=== PATIENT | female | born 1960 | race Two or more races ===

== ENCOUNTER 2021-05-09 08:58 | Outpatient (CLI) | payer MEDICAID, OTHER ==
[2021-05-09] MEDS ORDERED: IOHEXOL-350 100 ML VIAL IV ONE (09:28)
[2021-05-09] MEDS ORDERED: IV NS 0.9% 250 ML IV ONE (09:28)
[2021-07-23] MEDS ORDERED: DEXA6TAB6 PO (11:24)
== END 2021-05-09 23:59 | disposition home or self-care (01) ==
LOC: XR 08:58
PROVIDERS: ATTEND Internal Medicine Interventional Cardiology
DX: R07.9 Chest pain, unspecified (principal)
CPT/HCPCS: 75574; J7050; Q9967

== ENCOUNTER 2021-07-16 17:42 | Inpatient (IN) | payer MEDICAID, OTHER ==
[~2021-07-16] VITALS: Ht 160 cm; Wt 85.3 kg
--- NOTE | 2021-07-16 18:23 | NUR ---
BLOOD SPECIMEN COLLECTED AND SENT TO THE LAB
--- NOTE | 2021-07-16 19:04 | NUR ---
PER LAB, LACTIC 10.5 TROP 0.165 K 2.7
--- NOTE | 2021-07-16 19:04 | NUR ---
COVID SWAB DONE AND SENT TO THE LAB
[2021-07-16 19:43] LABS: CALCIUM, SERUM 8.3 mg/dL (8.5-10.1); CARBON DIOXIDE 23 mmol/L (21-32); CHLORIDE 100 mmol/L (98-107); GLUCOSE 153 mg/dL (74-106); POTASSIUM 3.5 mmol/L (3.5-5.1); SODIUM SERUM 134 mmol/L (136-145); UREA NITROGEN, BLOOD 13 mg/dL (7-18)
[2021-07-16 19:48] LABS: ALANINE AMINOTRANSFERASE 42 U/L (12-78); ALBUMIN 3.2 g/dL (3.4-5.0); ALKALINE PHOSPHATASE 74 U/L (46-116); ASPARTATE AMINOTRANSFERASE 29 U/L (15-37); BILIRUBIN,TOTAL 0.3 mg/dL (0.2-1.0); TOTAL PROTEIN, SERUM 7.5 g/dL (6.4-8.2)
[2021-07-16 19:52] LABS: CREATINE KINASE, TOTAL 84 U/L (26-192); D-DIMER 1.56 mg/L(FEU (0.17-0.50); FERRITIN 296 ng/mL (8-388)
[2021-07-16 19:54] LABS: BASOPHILS % (AUTO) 0.1 % (0.0-2.0); EOSINOPHILS % (AUTO) 0.3 % (0.0-6.0); HEMATOCRIT 36 % (33-45); HEMOGLOBIN 11.9 g/dL (11.5-14.8); LYMPHOCYTES # (AUTO) 1.2 K/uL (0.8-4.8); LYMPHOCYTES % (AUTO) 31.8 % (20.0-44.0); MEAN CORPUSCULAR HGB CONC 33 g/dl (31.0-36.0); MEAN CORPUSCULAR VOLUME 90 fL (82-100); MONOCYTES # (AUTO) 0.2 K/uL (0.1-1.30); MONOCYTES % (AUTO) 5.9 % (2.0-12.0); NEUTROPHILS # (AUTO) 2.4 K/uL (1.8-8.9); NEUTROPHILS % (AUTO) 61.9 % (43.0-81.0); PLATELET COUNT (AUTO) 239 K/uL (150-450); RED BLOOD CELL COUNT(AUTO) 3.99 MIL/uL (4.0-5.2); WHITE BLOOD COUNT (AUTO) 3.8 K/uL (4.3-11.0)
--- NOTE | 2021-07-16 20:07 | NUR ---
INFLUENZA SWAB VIA R NARE COLLECTED AND SENT TO LAB
--- NOTE | 2021-07-16 20:26 | NUR ---
ROOM 110
[2021-07-16] MEDS ORDERED: CEFTRIAXONE 1GM BAG (ER ONLY) 50 ML IV ONE (20:27)
[2021-07-16] MEDS ORDERED: CEFTRIAXONE 1GM BAG (ER ONLY) 1 GM/50 ML PIGGYBACK IV ONE (20:30)
[2021-07-16] MEDS ORDERED: IV NS 0.9% 1,000 ML BAG IV ONE (20:30)
--- NOTE | 2021-07-16 20:50 | NUR ---
URINE SAMPLE COLLECTED AND SENT TO LAB
--- NOTE | 2021-07-16 21:17 | NUR ---
REPORT GIVEN TO OMER DE LA TORRE RN FOR AMARIS
--- NOTE | 2021-07-16 21:25 | NUR ---
RN NOTES RECEIVED PT FROM ER VIA KARY ACCOMPANIED BY 2 ER STAFF AND TRANSFERRED TO BED VIA 2 PERSON ASSIST. PT IS A/OX4 CHINESE SPEAKING ; ON 4L OF O2 VIA NC TOLERATING WELL WITH RESPIRATIONS EVEN AND UNLABORED. COMPREHENSIVE PHYSICAL ASSESSMENT AND PATIENT CARE DONE. CALL LIGHT WITHIN REACH, SAFETY MEASURES AND ISOLATION PRECAUTION IN PLACE, WILL CONTINUE MONITOR AND ASSESS THROUGHOUT THE SHIFT. WILL CARRY OUT MD ORDERS ACCORDINGLY. TECHNOLOGY INTERNSHIP MADE AWARE.
--- NOTE | 2021-07-16 21:40 | NUR ---
PT TRANSFERRED TO [facility] ROOM 101 VIA ACLS PROTOCOL. ALL PT BELONGINGS WITH PT
[2021-07-16 21:42] LABS: BILIRUBIN,URINE NEGATIVE (NEGATIVE); COLOR,URINE YELLOW (YELLOW); LEUKOCYTE ESTERASE ,URINE NEGATIVE (NEGATIVE); NITRITE, URINE NEGATIVE (NEGATIVE); PROTEIN,URINE NEGATIVE (NEGATIVE); UGLUCOSE NEGATIVE (NEGATIVE); UROBILINOGEN,URINE 0.2 EU/dL (0.2)
[2021-07-16 21:46] VITALS: BP 142/83
[2021-07-16 21:51] LABS: BACTERIA,URINE None seen /HPF (None Seen); RBC,URINE 0-2 /HPF (0-2); SQUAMOUS EPITHELIAL CELL,UR 0-2 /HPF (None Seen); WBC,URINE 0-2 /HPF (0-3)
[2021-07-16] MEDS ORDERED: IPRATROPIUM NEB FS 0.5 MG/2.5 ML AMPUL.NEB NEB PRN (22:00)
[2021-07-16] MEDS ORDERED: ACETAMINOPHEN 325 MG TABLET PO PRN (22:00)
[2021-07-16] MEDS ORDERED: ALBUTEROL FS 2.5 MG/3 ML VIAL.NEB NEB PRN (22:00)
[2021-07-16] MEDS ORDERED: ONDANSETRON 4 MG TAB.RAPDIS SL PRN (22:00)
[2021-07-16] MEDS: DEXAMETHASONE SOD PHOSPHATE 10 MG/ML VIAL IV SCH (22:27)
[2021-07-17] VITALS (7 sets, daily range): BP systolic 105–148; BP diastolic 60–90
--- NOTE | 2021-07-17 | NUR ---
RN NOTES PATIENT REMAINED TO BE IN NO SIGNS OF ACUTE RESPIRATORY DISTRESS , VITAL SIGNS WNL AT THIS TIME. DONKEY DOCTOR MADE AWARE. WILL CONTINUE TO MONITOR AND REASSESS FOR ANY CHANGES THROUGHOUT THE SHIFT.
--- NOTE | 2021-07-17 04:00 | NUR ---
RN NOTES NO NOTED CHANGES IN PATIENT CONDITION AT THIS TIME; PATIENT VITALS STABLE, NO SIGNS OF ACUTE RESPIRATORY DISTRESS. AM PATIENT CARE RENDERED.WILL CONTINUE TO MONITOR AND REASSESS FOR ANY CHANGES THROUGHOUT THE SHIFT.
--- NOTE | 2021-07-17 06:51 | NUR ---
RN CLOSING NOTE: PATIENT REMAINS IN ROOM IN NO SIGNS OF RESPIRATORY DISTRESS, PATIENT STILL ON 4L OF O2 VIA NC ;TOLERATING WELL SATURATING @ >95% SP02. SAFETY MEASURES IMPLEMENTED, BED IN LOWEST POSITION, LOCKED, SIDE RAILS UP, CALL LIGHT WITHIN REACH. ALL NEEDS AND ORDERS ADDRESSED DURING THE SHIFT. IV ACCESS MAINTAINED INTACT, SECURED AND FLUSHING WELL. ALL DUE MEDS GIVEN ORDERED & SCHEDULED ; PATIENT TOLERATED WELL. PATIENT KEPT CLEAN AND COMFORTABLE WITHIN THE SHIFT. PATIENT ENDORSED TO INCOMING SHIFT RN WITH STABLE VITAL SIGN AND FOR CONTINUITY OF CARE.
[2021-07-17] MEDS ORDERED: LORA10TA7 PO (08:29)
[2021-07-17] MEDS ORDERED: ATOR20TA PO (08:29)
[2021-07-17] MEDS ORDERED: ASPI-1498 PO (08:29)
[2021-07-17] MEDS ORDERED: METO25TA4 PO (08:29)
[2021-07-17] MEDS: DEXAMETHASONE SOD PHOSPHATE 10 MG/ML VIAL IV SCH (08:41)
--- NOTE | 2021-07-17 15:52 | NUR ---
RN NOTE PATIENT O2 SAT 95% ON RA
[2021-07-17] MEDS: ENOXAPARIN SODIUM 40 MG/0.4 ML DISP.SYRIN SQ SCH (16:03)
--- NOTE | 2021-07-17 16:54 | NUR ---
RN OPENING NOTE PT AWAKE. VS WNL. PATIENT ON TRACH W/ 4 L PLACED. SAT > 95%. RU MIDLINE INTACT AND PATENT. GT ON @40CC. GT SITE PATENT AND INTACT. Addendum: 07/17/21 at 1656 by SHAUNNA MC RN *OPENING NOTE @0800*
--- NOTE | 2021-07-17 19:50 | NUR ---
RN NOTE RECEIVED PATIENT SITTING ON BEDSIDE CHAIR. AOX4. ABLE TO MAKE NEEDS KNOWN BREATHING EVEN AND UNLABORED. ON NASAL CANNULA AT 4L/MIN. TOLERATING WELL. NO SOB NOTED. NOTED WITH COUGH. SKIN WARM AND DRY. AFEBRILE AT THIS TIME. DENIES ANY PAIN. NOTED WITH LEFT HAND PERIPHERAL IV 20G. PATENT. BED LOW, IN LOCKED POSITION. CALL LIGHT WITHIN REACH.
[2021-07-17] MEDS: AZITHROMYCIN 250 MG TABLET PO SCH (21:24)
[2021-07-18] VITALS (7 sets, daily range): BP systolic 119–159; BP diastolic 65–84
--- NOTE | 2021-07-18 04:50 | NUR ---
RN NOTE PATIENT COMPLAINING OF MILD GENERALIZED BODY PAIN 11/25. ASSISTED WITH REPOSITION FOR COMFORT. ADMINISTERED TYLENOL 650 MG PO. WILL CONTINUE TO MONITOR.
[2021-07-18 06:27] LABS: BASOPHILS % (AUTO) 0.2 % (0.0-2.0); HEMATOCRIT 35 % (33-45); HEMOGLOBIN 11.5 g/dL (11.5-14.8); LYMPHOCYTES # (AUTO) 1.3 K/uL (0.8-4.8); LYMPHOCYTES % (AUTO) 22.1 % (20.0-44.0); MEAN CORPUSCULAR HGB CONC 34 g/dl (31.0-36.0); MEAN CORPUSCULAR VOLUME 90 fL (82-100); MONOCYTES # (AUTO) 0.3 K/uL (0.1-1.30); MONOCYTES % (AUTO) 5.6 % (2.0-12.0); NEUTROPHILS # (AUTO) 4.3 K/uL (1.8-8.9); NEUTROPHILS % (AUTO) 72.1 % (43.0-81.0); PLATELET COUNT (AUTO) 253 K/uL (150-450); RED BLOOD CELL COUNT(AUTO) 3.83 MIL/uL (4.0-5.2)
[2021-07-18 06:46] LABS: D-DIMER 0.99 mg/L(FEU (0.17-0.50)
[2021-07-18 07:00] LABS: CALCIUM, SERUM 8.6 mg/dL (8.5-10.1); CREATININE 0.8 mg/dL (0.6-1.3); MAGNESIUM 1.8 mg/dL (1.8-2.4); POTASSIUM 3.7 mmol/L (3.5-5.1)
--- NOTE | 2021-07-18 07:06 | NUR ---
RN NOTE RECEIVED CALL FROM PHARMACY ASKING ABOUT PATIENTS OXYGEN SATURATION WITHOUT SUPPLEMENTAL OXYGEN. EXPLAINED TO THE PATIENT AND AGREED TO REMOVE NASAL CANNULA TEMPORARILY. NOTED PATIENT WITH OXYGEN SATURATION OF 92 PERCENT ON ROOM AIR WITH HOB ELEVATED 45 DEGREES AND AT RESTING STATE.
[2021-07-18 07:31] LABS: C-REACTIVE PROTEIN 3.5 mg/dL (0.0-0.9)
--- NOTE | 2021-07-18 07:41 | NUR ---
RN OPENING NOTE PATIENT RECEIVED IN BED, ASLEEP. PATIENT ON 4L O2 NC WITH NO SIGNS OF LABORED BREATHING AT THIS TIME. LEFT HAND 20G PIV IN PLACE, PATENT WITH NO SIGNS OF INFILTRATION. NO SIGNS OF DISTRESS NOTED AT THIS TIME. BED LOCKED AND IN LOWEST POSITION, 2 SIDE RAILS UP, CALL LIGHT WITHIN REACH. WILL CONTINUE TO MONITOR.
[2021-07-18] MEDS: DEXAMETHASONE SOD PHOSPHATE 10 MG/ML VIAL IV SCH (08:22)
[2021-07-18] MEDS: AZITHROMYCIN 250 MG TABLET PO SCH (08:22)
[2021-07-18] MEDS ORDERED: REMDESIVIR (CHARGED) 200 MG, *LOADING DOSE 1 EA in IV NS 0.9% 210 ML IV ONE (10:00)
[2021-07-18] MEDS: ENOXAPARIN SODIUM 40 MG/0.4 ML DISP.SYRIN SQ SCH (11:20)
--- NOTE | 2021-07-18 18:42 | NUR ---
RN CLOSING NOTE PATIENT IN BED, AWAKE, A&OX4. PATIENT ON 4L O2 NC WITH NO SIGNS OF LABORED BREATHING AT THIS TIME. LEFT HAND 20G PIV IN PLACE, PATENT WITH NO SIGNS OF INFILTRATION. NO DISTRESS NOTED AT THIS TIME. BED LOCKED AND IN LOWEST POSITION, CALL LIGHT WITHIN REACH, 2 SIDE RAILS UP. ALL SAFETY MEASURES IMPLEMENTED. WILL ENDORSE TO PRECISION PRINTING WORKER NURSE.
[2021-07-19] VITALS: BP 113/71
[2021-07-19 04:00] VITALS: BP 105/60
[2021-07-19 06:31] LABS: BASOPHILS % (AUTO) 0.1 % (0.0-2.0); EOSINOPHILS % (AUTO) 0.2 % (0.0-6.0); HEMATOCRIT 34 % (33-45); HEMOGLOBIN 11.2 g/dL (11.5-14.8); LYMPHOCYTES # (AUTO) 1.3 K/uL (0.8-4.8); LYMPHOCYTES % (AUTO) 24.8 % (20.0-44.0); MEAN CORPUSCULAR HGB CONC 33 g/dl (31.0-36.0); MEAN CORPUSCULAR VOLUME 91 fL (82-100); MONOCYTES # (AUTO) 0.5 K/uL (0.1-1.30); MONOCYTES % (AUTO) 8.6 % (2.0-12.0); NEUTROPHILS # (AUTO) 3.5 K/uL (1.8-8.9); NEUTROPHILS % (AUTO) 66.3 % (43.0-81.0); PLATELET COUNT (AUTO) 252 K/uL (150-450); RED BLOOD CELL COUNT(AUTO) 3.72 MIL/uL (4.0-5.2); WHITE BLOOD COUNT (AUTO) 5.2 K/uL (4.3-11.0)
[2021-07-19 06:49] LABS: BILIRUBIN,DIRECT 0.1 mg/dL (0.0-0.2); BILIRUBIN,TOTAL 0.2 mg/dL (0.2-1.0); CALCIUM, SERUM 8.5 mg/dL (8.5-10.1); CREATININE 0.8 mg/dL (0.6-1.3); POTASSIUM 3.6 mmol/L (3.5-5.1); TOTAL PROTEIN, SERUM 7.2 g/dL (6.4-8.2)
--- NOTE | 2021-07-19 07:08 | NUR ---
RN NOTE NO SIGNIFICANT CHANGES DURING SHIFT. PATIENT AOX4. ABLE TO MAKE NEEDS KNOWN. BREATHING EVEN AND LABORED. NO EPISODE OF SOB DURING SHIFT. PATIENT SLEPT WELL THROUGH THE NIGHT. PATIENT ON 4L/MIN NC, TOLERATING WELL. SKIN WARM AND DRY, NO EPISODE OF FEVER. ALL DUE MEDICATIONS ADMINISTERED, NO ADVERSE REACTIONS NOTED. KEPT CLEAN AND DRY. BED LOW, IN LOCKED POSITION. CALL LIGHT WITHIN REACH.
[2021-07-19 07:40] LABS: ALBUMIN 2.9 g/dL (3.4-5.0)
--- NOTE | 2021-07-19 07:46 | NUR ---
[employer]LE [employer] ARCHITECT NOTES RECEIVED PT RESTING IN FLAT POSITION. PT HAS A L HAND 20G IV, FLUSHED, PATENT, WITH DRESSING IN TACT. SAFETY MEASURES IN PLACE WITH BED IN LOWEST LOCKED POSITION, AND CALL LIGHT WITHIN REACH.
[2021-07-19 08:00] VITALS: BP 99/65
[2021-07-19] MEDS: DEXAMETHASONE SOD PHOSPHATE 10 MG/ML VIAL IV SCH (09:20)
[2021-07-19] MEDS: AZITHROMYCIN 250 MG TABLET PO SCH (09:20)
[2021-07-19] MEDS: REMDESIVIR (CHARGED) 100 MG in IV NS 0.9% 100 ML IV SCH (09:53)
[2021-07-19] MEDS: ENOXAPARIN SODIUM 40 MG/0.4 ML DISP.SYRIN SQ SCH (11:14)
[2021-07-19 12:00] VITALS: BP 119/69
--- NOTE | 2021-07-19 12:57 | NUR ---
RN NOTES, RELAYED EKG RESULTS TO JANIS AND HE REPLIED WITH NO NEW ORDERS, BUT CONTINUE TO MONITOR CLOSELY.
[2021-07-19 16:00] VITALS: BP 103/65
--- NOTE | 2021-07-19 18:52 | NUR ---
IN FLIGHT REFUELING SYSTEM REPAIRER NOTES NO NOTABLE CHANGES DURING SHIFT. PT SITTING UP IN CHAIR. PT HAS A L HAND 20G IV ACCESS, SALINE LOCK. PT ON 4L NC WITH O2 SATURATION ~93% DURING SHIFT. SAFETY MEASURES IN PLACE, CLUTTER REMOVED FROM ROOM, AND CALL LIGHT WITHIN REACH.
[2021-07-19 20:00] VITALS: BP 106/59
--- NOTE | 2021-07-19 21:33 | NUR ---
RN NOTES, NOTED PATIENT WITH HR IN THE 40S, THE LOWEST 42, CONSISTENTLY IN 4OS, PATIENT A/O X4 ABLE TO VERBALIZE NEED AND CONCERNS, NO DISTRESS NOTED, NO SOB, DENIES CHEST PAIN OR DISCOMFORT, INFORMED JANIS CUT IN WORKER AND REPLIED WITH STAT ORDER FOR TROPONIN, ORDER NOTED AND CARRIED OUT, LAB AWARE.
--- NOTE | 2021-07-19 22:19 | NUR ---
RN OPENING NOTES Noted Patient HR in low 40's. Patient A/O x4. able to verbalize needs and concerns. No complaints of distress, no SOB, denies chest pain,
--- NOTE | 2021-07-19 22:47 | NUR ---
RN NOTES, RELAYED TROPONIN RESULTS TO JOSE BRUCE 0.018, INFORMED MD THAT PATIENT HR DROPPED EVEN LOWER TO 39-40, DR REPLIED WITH ORDER TO ADD CK MB TO THE PRIOR TROPONIN, ORDER NOTED AND CARRIED OUT, LAB AWARE
[2021-07-20] VITALS (7 sets, daily range): BP systolic 100–122; BP diastolic 50–75
--- NOTE | 2021-07-20 00:37 | NUR ---
RN NOTES, INFORMED DR BRUCE THAT CK MB IT NEED TO BE SENT OUT, AND RESULTS WILL TAKE ABOUT 2 DAYS ACCORDING TO THE LAB, AND HE REPLIED HE STILL WANTED, ASKED DR BRUCE AGAIN IF HE WANTS ANYTHING ELSE DONE FOR THE PATIENT BECAUSE HR IS DROPPING TO 39-40, AND HE SAID NO UNLESS PATIENT C/O PAIN OR DISCOMFORT, BUT HE STILL ADDED EKG, RT AWARE.
[2021-07-20 06:22] LABS: BASOPHILS % (AUTO) 0.1 % (0.0-2.0); EOSINOPHILS % (AUTO) 0.4 % (0.0-6.0); HEMATOCRIT 34 % (33-45); HEMOGLOBIN 11.3 g/dL (11.5-14.8); LYMPHOCYTES # (AUTO) 1.4 K/uL (0.8-4.8); LYMPHOCYTES % (AUTO) 36.3 % (20.0-44.0); MEAN CORPUSCULAR HGB CONC 33 g/dl (31.0-36.0); MEAN CORPUSCULAR VOLUME 91 fL (82-100); MONOCYTES # (AUTO) 0.4 K/uL (0.1-1.30); MONOCYTES % (AUTO) 11.7 % (2.0-12.0); NEUTROPHILS % (AUTO) 51.5 % (43.0-81.0); PLATELET COUNT (AUTO) 266 K/uL (150-450); RED BLOOD CELL COUNT(AUTO) 3.72 MIL/uL (4.0-5.2); WHITE BLOOD COUNT (AUTO) 3.8 K/uL (4.3-11.0)
[2021-07-20 08:26] LABS: CALCIUM, SERUM 8.8 mg/dL (8.5-10.1); CREATININE 0.7 mg/dL (0.6-1.3)
[2021-07-20] MEDS: DEXAMETHASONE SOD PHOSPHATE 10 MG/ML VIAL IV SCH (08:51)
[2021-07-20] MEDS: AZITHROMYCIN 250 MG TABLET PO SCH (08:51)
[2021-07-20 09:01] LABS: ALBUMIN 2.8 g/dL (3.4-5.0); BILIRUBIN,DIRECT 0.1 mg/dL (0.0-0.2); BILIRUBIN,TOTAL 0.2 mg/dL (0.2-1.0); TOTAL PROTEIN, SERUM 7.1 g/dL (6.4-8.2)
[2021-07-20] MEDS: REMDESIVIR (CHARGED) 100 MG in IV NS 0.9% 100 ML IV SCH ×2 (10:00→10:16)
--- NOTE | 2021-07-20 10:28 | NUR ---
RN NOTE- IV HEP LOCK LT HAND DISLODGED. INSERTED 22G TO RT HAND BUT BECAME COMPROMISED. MIDLINE ORDERED . REMDESIVIR ON HOLD UNTIL MIDLINE PLACED. MD AWARE.
--- NOTE | 2021-07-20 10:37 | NUR ---
TRIED PERIPHERAL IV OUT,REQUESTED MIDLINE ORDERED.
[2021-07-20] MEDS: ENOXAPARIN SODIUM 40 MG/0.4 ML DISP.SYRIN SQ SCH (11:55)
--- NOTE | 2021-07-20 12:20 | NUR ---
RN NOTE- RICHELLE JONES ON UNIT TO INSERT MIDLINE. PT FAMILY REFUSING TO ALLOW. HE EXPLAINED BENEFITS AND PROCEDURE. FAMILY INSISTING THIS RN INSERT SMALLER IV TO HAND. THIS RN REFUSED TWO PERIPHERAL IVS HAVE BEEN TRIED. WILL HAVE CHARGE ATTEMPT INSERTION
--- NOTE | 2021-07-20 13:00 | NUR ---
RN NOTE- IV HEPLOCK 22G INSERTED TO LT HAND
--- NOTE | 2021-07-20 13:05 | NUR ---
RN NOTE- REMDESIVIR IV INFUSED AT THIS TIME
--- NOTE | 2021-07-20 15:00 | NUR ---
RN NOTE- FAMILY (GEORGE [phone]) PHONED STATING "I WANT TO TALK TO THE DR I WANT TO TRANSFER HER TO ANOTHER HOSPITAL." ELENITA RICARDO NOTIFIED. STATED THAT SHE'D PHONE. NUMBER PROVIDED
--- NOTE | 2021-07-20 18:39 | NUR ---
RN CLOSING NOTE- PT IN BED , CALM, ALERT ORIENTED. PO INTAKE GOOD, USING BR , VS STABLE, HR TODAY IN 50'S TO 60'S, O2 SATURATION IS 98% ON 4LPM VIA NC. PT FAMILY VERY INVOLVED W CARE AND AT TIMES CONTROLLING CARE AND OUTCOMES. SIDE RAILS UP, BED LOCKED, NEEDS ATTENDED.
--- NOTE | 2021-07-20 20:06 | NUR ---
RN NOTE PATIENT IN BED ALERT AND ORIENTED X4, ABLE TO MAKE NEEDS KNOWN. PATIENT CURRENTLY HAS NASAL CANNULA OFF WHILE EATING DINNER, O2 SAT 93%. NO S/S OF DISTRESS. PATIENT REQUESTED FOR HOT TEA, AND WAS PROVIDED FOR PT. DENIES ANY PAIN. IV ACCESS ON LEFT HAND PATENT AND INTACT. BED LOCKED AND IN LOWEST POSITION. CALL LIGHT WITHIN REACH. ALL NEEDS ANTICIPATED.
[2021-07-21 04:43] VITALS: BP 125/60
[2021-07-21 04:53] VITALS: BP 125/60
[2021-07-21 06:36] LABS: BASOPHILS % (AUTO) 0.2 % (0.0-2.0); EOSINOPHILS % (AUTO) 0.3 % (0.0-6.0); HEMATOCRIT 36 % (33-45); HEMOGLOBIN 11.6 g/dL (11.5-14.8); LYMPHOCYTES # (AUTO) 1.9 K/uL (0.8-4.8); LYMPHOCYTES % (AUTO) 32.5 % (20.0-44.0); MEAN CORPUSCULAR HGB CONC 33 g/dl (31.0-36.0); MEAN CORPUSCULAR VOLUME 91 fL (82-100); MONOCYTES # (AUTO) 0.6 K/uL (0.1-1.30); MONOCYTES % (AUTO) 9.5 % (2.0-12.0); NEUTROPHILS # (AUTO) 3.3 K/uL (1.8-8.9); NEUTROPHILS % (AUTO) 57.5 % (43.0-81.0); PLATELET COUNT (AUTO) 301 K/uL (150-450); RED BLOOD CELL COUNT(AUTO) 3.92 MIL/uL (4.0-5.2); WHITE BLOOD COUNT (AUTO) 5.8 K/uL (4.3-11.0)
--- NOTE | 2021-07-21 06:40 | NUR ---
RN NOTE PATIENT IN BED ALERT AND ORIENTED X4, ABLE TO MAKE NEEDS KNOWN. ON O2 4L VIA NASAL CANNULA O2 SAT 99%. NO S/S OF DISTRESS. DENIES ANY PAIN. IV ACCESS ON LEFT HAND SECURED. BED LOCKED AND IN LOWEST POSITION. CALL LIGHT WITHIN REACH. WILL ENDORSE TO AM SHIFT.
[2021-07-21 06:55] LABS: ALBUMIN 2.8 g/dL (3.4-5.0); BILIRUBIN,DIRECT 0.1 mg/dL (0.0-0.2); BILIRUBIN,TOTAL 0.2 mg/dL (0.2-1.0); CALCIUM, SERUM 8.8 mg/dL (8.5-10.1); CREATININE 0.7 mg/dL (0.6-1.3); MAGNESIUM 2.2 mg/dL (1.8-2.4); PHOSPHORUS 3.6 mg/dL (2.5-4.9)
--- NOTE | 2021-07-21 07:47 | NUR ---
RN NOTE RECEIVED PT RESTING IN BED IN SIDE LYING POSITION. PT IS ON 4L NC WITH NO S/SX OF ACUTE RESPIRATORY DISTRESS. PT HAS A L HAND 20G FLUSHED, PATENT, WITH DRESSING IN TACT. SAFETY MEASURES IN PLACE WITH SIDE RAILS UP X2, BED IN LOWEST LOCKED POSITION AND CALL LIGHT WITHIN REACH.
[2021-07-21] MEDS: DEXAMETHASONE SOD PHOSPHATE 10 MG/ML VIAL IV SCH (09:14)
[2021-07-21 09:35] LABS: POTASSIUM 4.3 mmol/L (3.5-5.1)
[2021-07-21] MEDS: REMDESIVIR (CHARGED) 100 MG in IV NS 0.9% 100 ML IV SCH (09:54)
[2021-07-21] MEDS: ENOXAPARIN SODIUM 40 MG/0.4 ML DISP.SYRIN SQ SCH (10:55)
[2021-07-21 12:00] VITALS: BP 130/72
[2021-07-21 16:00] VITALS: BP 114/67
--- NOTE | 2021-07-21 18:50 | NUR ---
RN CLOSING NOTE PT RESTING COMFORTABLY IN BED IN SEMI-FOWLERS POSITION ON 4L NC WITH O2 SATURATION OF 100%. PT HAS NO COMPLAINTS OF PAIN AND NO S/SX OF RESPIRATORY DISTRESS. PT ABLE TO AMBULATE AROUND ROOM THROUGH OUT SHIFT. PT USING INCENTIVE SPIROMETER. SAFETY MEASURES IN PLACE WITH BED IN LOWEST LOCKED POSITION, CALL LIGHT WITHIN REACH AND ALL NEEDS ATTENDED AT THIS TIME.
[2021-07-21 20:00] VITALS: BP 95/42
--- NOTE | 2021-07-21 20:02 | NUR ---
RN NOTE RECEIVED PATIENT IN BED, SLEEPING, EASILY AROUSABLE. AOX4, ABLE TO MAKE NEEDS KNOWN. BREATHING EVEN AND UNLABORED. NO SOB NOTED. CURRENTLY TOLERATING OXYGEN 4L/MIN VIA NASAL CANNULA. HOB ELEVATED. SKIN WARM AND DRY, AFEBRILE AT THIS TIME. DENIES FEELING DISCOMFORT. NOTED WITH LEFT HAND 20G. PATENT. NO INFILTRATION NOTED. PATIENT WITH INCENTIVE SPIROMETER AT BEDSIDE. PATIENT ABLE TO PERFORM RETURN DEMONSTRATION. PATIENT STATES SHE JUST WANTS TO REST FOR TONIGHT. ALL NEEDS ATTENDED. BED LOW, IN LOCKED POSITION. CALL LIGHT WITHIN REACH. Addendum: 07/21/21 at 2359 by CJ SANCHES RN CORRECTION: LEFT HAND 18G.
[2021-07-22 04:00] VITALS: BP 116/64
[2021-07-22 07:35] LABS: BASOPHILS % (AUTO) 0.1 % (0.0-2.0); EOSINOPHILS % (AUTO) 0.4 % (0.0-6.0); HEMATOCRIT 35 % (33-45); HEMOGLOBIN 11.6 g/dL (11.5-14.8); LYMPHOCYTES # (AUTO) 1.9 K/uL (0.8-4.8); LYMPHOCYTES % (AUTO) 25.7 % (20.0-44.0); MEAN CORPUSCULAR HGB CONC 33 g/dl (31.0-36.0); MEAN CORPUSCULAR VOLUME 91 fL (82-100); MONOCYTES # (AUTO) 0.4 K/uL (0.1-1.30); MONOCYTES % (AUTO) 5.9 % (2.0-12.0); NEUTROPHILS # (AUTO) 5.1 K/uL (1.8-8.9); NEUTROPHILS % (AUTO) 67.9 % (43.0-81.0); PLATELET COUNT (AUTO) 309 K/uL (150-450); RED BLOOD CELL COUNT(AUTO) 3.88 MIL/uL (4.0-5.2); WHITE BLOOD COUNT (AUTO) 7.4 K/uL (4.3-11.0)
--- NOTE | 2021-07-22 07:45 | NUR ---
RN OPENING NOTE RECEIVED PT AWAKE, RESTING COMFORTABLY IN SEMI-FOWLERS POSITION. PT IN NO ACUTE RESPIRATORY DISTRESS ON 4L NC WITH O2 SATURATION OF 96%. PT HAS A L HAND 18G SALINE LOCK, FLUSHED, PATENT, WITH DRESSING IN TACT. SAFETY MEASURES IN PLACE WITH BED IN LOWEST LOCKED POSITION, SIDE RAILS UP X2, AND CALL LIGHT WITHIN REACH.
[2021-07-22 08:00] VITALS: BP 122/63
[2021-07-22 08:12] LABS: ALBUMIN 2.6 g/dL (3.4-5.0); BILIRUBIN,DIRECT 0.1 mg/dL (0.0-0.2); BILIRUBIN,TOTAL 0.2 mg/dL (0.2-1.0); CALCIUM, SERUM 8.8 mg/dL (8.5-10.1); CREATININE 0.7 mg/dL (0.6-1.3); POTASSIUM 3.6 mmol/L (3.5-5.1); TOTAL PROTEIN, SERUM 6.9 g/dL (6.4-8.2)
[2021-07-22] MEDS: DEXAMETHASONE SOD PHOSPHATE 10 MG/ML VIAL IV SCH (09:10)
[2021-07-22] MEDS: REMDESIVIR (CHARGED) 100 MG in IV NS 0.9% 100 ML IV SCH (10:48)
[2021-07-22] MEDS: ENOXAPARIN SODIUM 40 MG/0.4 ML DISP.SYRIN SQ SCH (10:50)
[2021-07-22 16:00] VITALS: BP 112/68
--- NOTE | 2021-07-22 18:57 | NUR ---
RN CLOSING NOTE NO NOTABLE CHANGES DURING SHIFT. PT RESTING COMFORTABLY IN BED IN SEMI FOWLERS POSITION. SAFETY MEASURES IN PLACE WITH BED IN LOWEST LOCKED POSITION, CALL LIGHT WITHIN REACH AND ALL NEEDS ATTENDED AT THIS TIME.
--- NOTE | 2021-07-22 19:00 | NUR ---
RN OPENING NOTES RECEIVED REPORT FROM MORNING NURSE. PATIENT SITTING ON HER CHAIR A/O X 4. NO DISTRESS NO SOB NOTED. WITH OXYGEN INHALATION AT 4LPM VIA NC TOLERATING WELL 98% SATURATION. WITH IV ACCESS ON L HAND G#18 PATENT FLUSHES WELL. FOR POSSIBLE D/C TOMORROW. CALL LIGHT WITHIN REACH. SAFETY MEASURE IN PLACE AT ALL TIMES. WILL CONTINUE TO MONITOR THE PATIENT
[2021-07-23] VITALS: BP 110/63
--- NOTE | 2021-07-23 06:39 | NUR ---
RN CLOSING NOTES PATIENT REMAINS IN STABLE CONDITION THE WHOLE SHIFT NO SIGNIFICANT CHANGES IN HEALTH CONDITION. STILL ON OXYGEN INHALATION AT 4LPM VIA NC SATURATING AT 95%. NO DISTRESS, NO SOB NOTED THIS SHIFT. ALL SAFETY MEASURE IN PLACE. HOB ELEVATED, BED IN LOWEST POSITION AND LOCKED. CALL LIGHT WITHIN REACH. ALL NEEDS ATTENDED. ENDORSED
[2021-07-23 07:35] LABS: EOSINOPHILS % (AUTO) 0.5 % (0.0-6.0); HEMATOCRIT 35 % (33-45); HEMOGLOBIN 11.3 g/dL (11.5-14.8); LYMPHOCYTES # (AUTO) 1.9 K/uL (0.8-4.8); LYMPHOCYTES % (AUTO) 17.9 % (20.0-44.0); MEAN CORPUSCULAR HGB CONC 33 g/dl (31.0-36.0); MEAN CORPUSCULAR VOLUME 90 fL (82-100); MONOCYTES # (AUTO) 0.8 K/uL (0.1-1.30); NEUTROPHILS # (AUTO) 8.1 K/uL (1.8-8.9); NEUTROPHILS % (AUTO) 74.6 % (43.0-81.0); PLATELET COUNT (AUTO) 365 K/uL (150-450); RED BLOOD CELL COUNT(AUTO) 3.85 MIL/uL (4.0-5.2); WHITE BLOOD COUNT (AUTO) 10.8 K/uL (4.3-11.0)
--- NOTE | 2021-07-23 07:54 | NUR ---
MS RN OPENING NOTES RECEIVED PATIENT IN BED, ASLEEP. PATIENT ON OXYGEN THERAPY AT 4 LPM VIA NASAL CANULA; BREATHING EVEN AND UNLABORED AT THIS TIME. NO S/S OF PAIN SUCH FACIAL GRIMACING, MOANING OR GUARDING. IV ACCESS ON L HAND G # 18; SL. SAFETY PRECAUTIONS IN PLACE; BED IN LOW POSITION AND LOCKED; RAILS UP x2, CALL LIGHT WITHIN REACH. WILL CONTINUE TO MONITOR PATIENT.
[2021-07-23 08:02] LABS: CALCIUM, SERUM 8.7 mg/dL (8.5-10.1); CREATININE 0.7 mg/dL (0.6-1.3); MAGNESIUM 2.2 mg/dL (1.8-2.4); POTASSIUM 4.1 mmol/L (3.5-5.1)
[2021-07-23] MEDS: DEXAMETHASONE SOD PHOSPHATE 10 MG/ML VIAL IV SCH (08:32)
[2021-07-23 10:17] VITALS: BP 115/73
[2021-07-23] MEDS: ENOXAPARIN SODIUM 40 MG/0.4 ML DISP.SYRIN SQ SCH (10:58)
[2021-07-23] MEDS ORDERED: DEXA6TAB6 PO (11:24)
--- NOTE | 2021-07-23 14:55 | NUR ---
MS INSTRUCTOR PRODUCT INSPECTION NOTES PATIENT DISCHARGE HOME IN MEDICALLY STABLE CONDITION. ALL PATIENT SEEN BY PRIMARY PHYSICIAN AND DISCUSSED HER DISCHARGE INSTRUCTIONS; PATIENT VERBALIZED UNDERSTANDING. ALL DISCHARGE PAPERWORK READY AND SIGNED BY PATIENT. BELONGINGS ACCOUNTED FOR AND FORM SIGNED WELL. SKIN INTACT. IV ACCESS REMOVED PRIOR TO DISCHARGE; WRIST BAND REMOVED. CHARGE NURSE DELMAR TOOK OVER DISCHARGE WHILE NURSE ON BREAK. PATIENT DISCHARGED HOME WITH OXYGEN. LEFT THE UNIT AT 1435 VIA WHEELCHAIR ACCOMPANIED BY CHARGE NURSE. PATIENT PICKED UP BY DAUGHTER IN A PRIVATE CAR.
== END 2021-07-23 14:30 | disposition home or self-care (01) | DRG 137 ==
LOC: ER 18:39 → TELE1 20:30 → MEDSG1 07-20 08:33
PROVIDERS: ADMIT Nurse Practitioner Acute Care; ATTEND Nurse Practitioner Family
PROC: XW033E5 Introduction of Remdesivir Anti-infective into Peripheral Vein, Percutaneous Approach, New Technology Group 5 (ICD-10-PCS; principal; 2021-07-19)
DX: U07.1 COVID-19 (principal); J96.01 Acute respiratory failure with hypoxia; J12.82 Pneumonia due to coronavirus disease 2019; E87.1 Hypo-osmolality and hyponatremia; G90.8 Other disorders of autonomic nervous system; I10 Essential (primary) hypertension; D72.819 Decreased white blood cell count, unspecified; E66.9 Obesity, unspecified; J98.11 Atelectasis
CPT/HCPCS: 36415; 70450-TC; 71045-TC; 80048-TC; 80053-TC; 80076-TC; 81001; 82550-TC; 82553; 82728-TC; 83605-TC; 83615-TC; 83735-TC; 83880; 84100-TC; 84484-TC; 85025-TC; 85378-TC; 85385-TC; 85610-TC; 85730-TC; 86140-TC; 87040-TC; 87081-TC; A4216; G0378; J0696; J1100; J1650; J7030; J7050; U0003